=== PATIENT | male | born 1965 | race Caucasian/White ===

== ENCOUNTER 2022-04-12 11:45 | Day surgery (SDC) | payer OTHER, BC ==
[~2022-04-12] VITALS: Ht 182.9 cm; Wt 109.3 kg
[2022-04-12] MEDS ORDERED: ceFAZolin SOD 2 GM in IV 1 EA IV ONE (12:00)
[2022-04-12] MEDS ORDERED: propofoL 200 MG/20 ML VIAL As Ordered ONE (12:59)
[2022-04-12] MEDS ORDERED: LIDOCAINE 2% 100MG/5ML SDV (FOR ANES.) As Ordered ONE (12:59)
[2022-04-12] MEDS ORDERED: ONDANSETRON 4MG 2ML VIAL As Ordered ONE (12:59)
[2022-04-12] MEDS ORDERED: fentaNYL 100 MCG/2 ML INJECTION As Ordered ONE (13:00)
[2022-04-12] MEDS ORDERED: MIDAZOLAM INJ 2MG/2ML VIAL As Ordered ONE (13:00)
[2022-04-12] MEDS ORDERED: ISOVUE-300 61% 100ML VIAL As Ordered ONE (13:04)
[2022-04-12] MEDS ORDERED: ACETAMINOPHEN 1000MG 100ML IV BAG As Ordered ONE (14:04)
[2022-04-12] MEDS ORDERED: ONDANSETRON 4MG 2ML VIAL IV PRN (15:50)
[2022-04-12] MEDS ORDERED: HYDROMORPHONE HCL 0.5 MG/ 0.5 ML SYRINGE IV PRN (15:50)
[2022-04-12] MEDS ORDERED: LR 1,000 ML IV SCH (15:50)
[2022-04-12] MEDS ORDERED: fentaNYL 100 MCG/2 ML INJECTION IV PRN (15:50)
[2022-04-12] MEDS ORDERED: METOCLOPRAMIDE INJ 10MG/2ML VIAL IV PRN (15:50)
[2022-04-12] MEDS ORDERED: oxyCODONE 5MG TAB PO PRN (15:50)
[2022-04-12] MEDS ORDERED: PERCOCET 5MG/325MG TAB PO PRN (16:20)
[2022-04-12 16:30] VITALS: BP 140/79
== END 2022-04-12 16:34 | disposition home or self-care (01) ==
LOC: M SDC 11:45
PROVIDERS: ATTEND Urology
DX: N20.0 Calculus of kidney (principal); I10 Essential (primary) hypertension; E03.9 Hypothyroidism, unspecified; Z79.899 Other long term (current) drug therapy
CPT/HCPCS: 52356; 74420; 82365; 87635; C1769; C1894; C2617; J0131; J0690; J1100; J2250; J2405; J3010